=== PATIENT | female | born 1960 | race Caucasian/White ===

== ENCOUNTER → 2020-07-02 | Outpatient (CLI) | payer BC ==
[~2020-07-02] MED LIST: BENADRYL 25MG C25 MG PO; PROTONIX 40 MG40 M1 PO; Voltaren Gel 1 % TOP; ZYRTEC10 MG PO
== END ==
LOC: KOH-I 09:30
DX: R19.00 Intra-abdominal and pelvic swelling, mass and lump, unspecified site (principal); R79.89 Other specified abnormal findings of blood chemistry
CPT/HCPCS: 76700

== ENCOUNTER 2021-01-28 10:37 | Emergency (ER) | payer MEDICAID ==
[2021-01-28 12:01] LABS: HEMOGLOBIN 12.5 gm/dl (12.3-15.3); RED BLOOD COUNT 4.75 M/UL (4.00-5.10); WHITE BLOOD COUNT 5.6 K/UL (4.5-11.0)
[2021-01-28 12:24] LABS: BUN/CREATININE RATIO 22 (0-10)
[2021-01-28] MEDS ORDERED: BROMFED DM COU473 ML PO (13:57)
[2021-01-28] MEDS ORDERED: ZYRTEC10 MG PO (13:57)
== END 2021-01-28 11:17 | disposition home or self-care (01) ==
LOC: ER1 10:37
PROVIDERS: Nurse Practitioner
DX: J06.9 Acute upper respiratory infection, unspecified (principal); J01.90 Acute sinusitis, unspecified; Z20.822 Contact with and (suspected) exposure to COVID-19
CPT/HCPCS: 71045; 80053; 81001; 85025; 99283; U0002